=== PATIENT | male | born 1940 | race Asian ===

== ENCOUNTER 2018-09-25 06:20 | Day surgery (SDC) | payer MEDICARE ==
[2018-09-25] MEDS ORDERED: IV NORMAL SALINE 1000 ML BAG IV ONE (06:21)
[2018-09-25] MEDS ORDERED: ATROPINE SULFATE 1 MG/ML VIAL IV ONE (06:21)
[2018-09-25] MEDS ORDERED: IRR STERIL WATER FOR IRR 1000 ML BOTTLE IR ONE (06:21)
[2018-09-25] MEDS ORDERED: CIPROFLOXACIN 0.3% OPHT DROP 2.5 ML BOTTLE ONE (06:37)
[2018-09-25] MEDS ORDERED: KETOROLAC 0.5% OPHT DROP 3 ML BOTTLE ONE (06:37)
[2018-09-25] MEDS ORDERED: CYCLOPENTOLATE 1% OPHT DROP 2 ML BOTTLE ONE (06:38)
[2018-09-25] MEDS ORDERED: TROPICAMIDE 1% OPHT DROP 3 ML BOTTLE ONE (06:38)
[2018-09-25] MEDS ORDERED: PHENYLEPHRINE 2.5% OPHT DROP 2 ML BOTTLE ONE (06:38)
[2018-09-25] MEDS ORDERED: NEO/POLYMYX B/DEXAME OPHT OINT 3.5 GM TUBE ONE (06:53)
[2018-09-25] MEDS ORDERED: LIDOCAINE-MPF 2% 5 ML VIAL ONE (06:53)
[2018-09-25] MEDS ORDERED: MOXIFLOXACIN HCL 3 ML OPHT DROPS ONE (06:53)
[2018-09-25] MEDS ORDERED: HYALURONIDASE,OVINE 200 UNITS/ML VIAL ONE (06:54)
[2018-09-25] MEDS ORDERED: BALANCED SALT IRRIG SOLN COMB2 15 ML IRRIG.SOLN ONE (06:54)
[2018-09-25] MEDS ORDERED: TETRACAINE HCL 0.5% OPHT DROP 2 ML BOTTLE ONE (06:54)
[2018-09-25] MEDS ORDERED: BUPIVACAINE PF 0.5% 30 ML VIAL ONE (06:54)
[2018-09-25] MEDS ORDERED: ACETYLCHOLINE CHLORIDE 1% OPHT 1 EA KIT ONE (06:54)
[2018-09-25] MEDS ORDERED: HYALURONATE SODIUM 12.8 MG/0.8 ML DISP.SYRIN ONE (06:54)
[2018-09-25] MEDS ORDERED: TIMOLOL MALEATE 0.5% OPHT DROP 5 ML BOTTLE ONE (06:54)
[2018-09-25] MEDS ORDERED: FENTANYL CITRATE 100 MCG/2 ML AMPUL ONE (07:56)
[2018-09-25] MEDS ORDERED: BALANCED SALT IRRIG SOLN COMB1 0 ML ONE (08:28)
[2018-09-25] MEDS ORDERED: BALANCED SALT IRRIG SOLN COMB1 500 ML, EPINEPHRINE-PF 1:1000 0.5 MG IO ONE ×2 (09:00)
== END 2018-09-25 10:05 | disposition home or self-care (01) ==
LOC: DS 06:20
PROVIDERS: ATTEND Ophthalmology
DX: E11.36 Type 2 diabetes mellitus with diabetic cataract (principal); I12.9 Hypertensive chronic kidney disease with stage 1 through stage 4 chronic kidney disease, or unspecified chronic kidney disease; E11.22 Type 2 diabetes mellitus with diabetic chronic kidney disease; N18.3 Chronic kidney disease, stage 3 (moderate); I25.10 Atherosclerotic heart disease of native coronary artery without angina pectoris; J43.9 Emphysema, unspecified; N40.0 Benign prostatic hyperplasia without lower urinary tract symptoms; E78.5 Hyperlipidemia, unspecified; Z79.899 Other long term (current) drug therapy; Z98.890 Other specified postprocedural states; Z79.84 Long term (current) use of oral hypoglycemic drugs
CPT/HCPCS: 66984; 71045; 82962 ×2; J0171; J3010; J3471; J3490 ×2; J7321; V2632; A4217; A4663; J0461; J7030